=== PATIENT | male | born 1980 | race Two or more races ===

== ENCOUNTER 2023-03-27 09:25 | Emergency (ER) | payer OTHER ==
[2023-03-27 09:40] VITALS: BP 130/67; PULSE 64; RESP 18; TEMP 98.2; BMI 30.7
[2023-03-27] MEDS ORDERED: ACETAMINOPHEN 500 MG TABLET (FP) PO ONE (10:19)
[2023-03-27] MEDS ORDERED: LIDOCAINE 5% TOPICAL PATCH TP ONE (10:19)
[2023-03-27] MEDS ORDERED: KETOROLAC TROMETHAMINE 30 MG/1 ML VIAL IM ONE (10:19)
[2023-03-27] MEDS ORDERED: KETOROLAC TROMETHAMINE 30 MG/1 ML VIAL ONE (10:26)
[2023-03-27] MEDS ORDERED: ACETAMINOPHEN 500 MG TABLET (FP) ONE (10:26)
[2023-03-27] MEDS ORDERED: LIDOCAINE 4% PATCH TP ONE (10:26)
[2023-03-27] MEDS ORDERED: LIDOCAINE PATCH REMOVAL MC SCH (22:00)
== END 2023-03-27 11:03 | disposition home or self-care (01) ==
LOC: JERFT 09:25 → JER 09:25 → JERFT 11:03
PROC: 3E0233Z Introduction of Anti-inflammatory into Muscle, Percutaneous Approach (ICD-10-PCS; principal; 2023-03-27)
DX: M54.50 Low back pain, unspecified (principal); M54.2 Cervicalgia; M54.6 Pain in thoracic spine; V49.50XA Passenger injured in collision with unspecified motor vehicles in traffic accident, initial encounter
CPT/HCPCS: 72100-TC-FY; 99284-25

== ENCOUNTER 2023-10-15 22:10 | Emergency (ER) | payer OTHER ==
[2023-10-15 22:16] VITALS: BMI 37.2
[2023-10-16 00:16] LABS: INR 1.01 (0.83-1.09); PROTHROMBIN TIME (PATIENT) 11.4 SEC (9.7-13.0)
[2023-10-16 00:21] LABS: BASO % 0.1 % (0-2.0); EOS % 0.6 % (0-4.5); HEMATOCRIT 42.7 % (35.4-49); HEMOGLOBIN 14.6 GM/dL (11.7-16.9); LYMPH % 15.3 % (8-40); MCH 29.7 pg (25.7-33.7); MCHC 34.1 g/dl (32.0-35.9); MEAN PLT VOLUME 9.2 fl (7.5-11.1); MONO % 7.7 % (3.8-10.2); NEUT % 76.3 % (42.8-82.8); PLATELET COUNT 235 10^3/uL (134-434); RBC 4.91 M/mm3 (4.00-5.60); RDW 13.7 % (11.9-15.9); WHITE BLOOD COUNT 12.7 K/mm3 (4.0-10.0)
[2023-10-16 00:34] LABS: CREATININE 0.7 mg/dL (0.55-1.3)
[2023-10-16] MEDS: ACETAMINOPHEN 325 MG TABLET (FP) PO ONE (00:34)
[2023-10-16 00:51] LABS: ALBUMIN 4.2 g/dl (3.4-5.0); BILIRUBIN,TOTAL 0.5 mg/dL (0.2-1); BLOOD UREA NITROGEN 19.8 mg/dL (7-18); CALCIUM 8.8 mg/dL (8.5-10.1); POTASSIUM 3.9 mmol/L (3.5-5.1); TOT PROT 7.6 g/dl (6.4-8.2)
[2023-10-16] MEDS ORDERED: ACETAMINOPHEN INJECTION 100 ML IVPB ONE (02:09)
[2023-10-16] MEDS: ACETAMINOPHEN 1000 MG/100 ML BAG IVPB ONE (02:30)
[2023-10-16 04:05] VITALS: BP 139/99; PULSE 68; RESP 16; TEMP 97.8
== END 2023-10-16 04:07 | disposition short-term general hospital (02) ==
LOC: JER 22:10
PROC: 3E033NZ Introduction of Analgesics, Hypnotics, Sedatives into Peripheral Vein, Percutaneous Approach (ICD-10-PCS; principal; 2023-10-16)
DX: S42.191A Fracture of other part of scapula, right shoulder, initial encounter for closed fracture (principal); S01.01XA Laceration without foreign body of scalp, initial encounter; R07.89 Other chest pain; W11.XXXA Fall on and from ladder, initial encounter; Z20.822 Contact with and (suspected) exposure to COVID-19
CPT/HCPCS: 36415; 70450-TC; 71046-TC-FY; 71275-TC; 72125-TC; 73030-TC-RT-FY; 74174-TC; 80053; 85025; 85610; 85730; 86850; 86900; 86901; 87635; 93005; 93010; 99285-25; J0131; Q9967